=== PATIENT | male | born 1950 | race Native Hawaiian/Other Pacific Islander ===

== ENCOUNTER 2017-05-06 11:20 | Outpatient (CLI) | payer MEDICARE ==
--- NOTE | 2017-05-06 15:02 | Cat Scan Report ---
CT PELVIS WITHOUT CONTRAST HISTORY: Low back pain, pelvic pain. TECHNIQUE: Helical CT without IV contrast. Sagittal and coronal reformatted images. FINDINGS: There is no evidence for pelvic fracture, diastasis or bone lesion. The bilateral hips are unremarkable. Minimal osteoarthritic changes are identified at both SI joints. No evidence for bony erosions or ankylosis. There is an anterior bridging osteophyte involving the superior right SI joint. The sacral neural foramen are within normal limits. The pelvic viscera are unremarkable. No mass or inflammation. 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 See above.
--- NOTE | 2017-05-06 15:05 | Cat Scan Report ---
CT LUMBAR SPINE WITHOUT CONTRAST HISTORY: Low back pain. TECHNIQUE: Helical CT with sagittal and coronal reformatted images. FINDINGS: Although intraspinal contents are poorly evaluated on CT, there is suggestion of mild diffuse posterior bulging discs at L4-5 and L5-S1. There may be minimal central canal narrowing at these levels. The remaining disc spaces are unremarkable. There is normal height and alignment of the lumbar vertebra. No evidence for fracture, subluxation or bone lesion. The posterior elements are in appropriate relationship. No significant facet arthropathy or pars defect. The bony neural foramen appear widely patent throughout the lumbar region. The paraspinal soft tissues are unremarkable. IMPRESSION: There is suggestion of mild diffuse posterior bulging discs at L4-5 and L5-S1 as outlined above. If further evaluation is needed MRI lumbar spine without contrast is recommended.
== END 2017-05-06 11:21 | disposition home or self-care (01) ==
LOC: CT 11:20
PROVIDERS: ATTEND Internal Medicine
DX: M16.0 Bilateral primary osteoarthritis of hip (principal); M25.752 Osteophyte, left hip; M25.751 Osteophyte, right hip; M25.852 Other specified joint disorders, left hip; M25.851 Other specified joint disorders, right hip
CPT/HCPCS: 72131; 72192